=== PATIENT | female | born 1945 | race Caucasian/White ===

== ENCOUNTER 2017-01-16 02:41 | Emergency (ER) | payer MEDICARE ==
[~2017-01-16] VITALS: Ht 172.7 cm; Wt 79.5 kg
[~2017-01-16 02:41] MED LIST: AMIT10TA6 PO; ASPI-973 PO; CALC-78 PO; CELE200C PO; DICY10CA13 PO; FLUT16SP NS; HSC.125T PO; LISI40TA PO; METF500T4 PO; MULT-1018 PO; OMEP20TA24 PO; P EP PO; PRAV40TA PO; TRAM50TA2 PO
[2017-01-16 03:17] VITALS: BP 148/95; PULSE 103; RESP 18; O2SAT 97
[2017-01-16 03:32] LABS: BASOPHILS % (AUTO) 0.4 % (0-3); EOSINOPHILS % (AUTO) 5.4 % (0-5); MONOCYTES % (AUTO) 10.9 % (4-12); Mean Corpuscular Hemoglobin 29.3 pg (27.0-35.0); Mean Corpuscular Volume 86.4 fL (81-100); NEUTROPHILS % (AUTO) 56.2 % (40-74); Platelet Count 374 bil/L (150-400)
[2017-01-16 03:57] LABS: Magnesium 1.6 mg/dL (1.6-2.6)
--- NOTE | 2017-01-16 04:08 | ED.REPORT ---
HPI-Abd Pain F 40 and Over Date of Service Jan 16, 2017 ED Provider: Titus Lopes MD Pt is a 71 year old female with a hx of DM, diverticulitis, arthritis, and HTN presenting to the ED complaining of lower abdominal pain onset at 0000 this morning. Associated symptoms include nausea. Denies dysuria, fever, chills, SOB , wheezing, or vomiting. Denies any recent UTI. Nursing Notes Stated Complaint: ABDOMINAL PAIN Chief Complaint: Female Abdominal Pain Nursing Notes Reviewed: Yes Allergies: Coded Allergies: Penicillins (Verified Allergy, Severe, 01/16/17) pentazocine (Verified Allergy, Severe, 01/16/17) ampicillin (Verified Allergy, Unknown, Hives, 01/16/17) Uncoded Allergies: Penicillin (Allergy, Severe, 04/02/04) Pentazocine (Allergy, Severe, 04/02/04) Scheduled Amitriptyline (Amitriptyline) 10 Mg Tablet 10 MG PO HS Aspirin (Aspirin) 81 Mg Tablet 81 MG PO DAILY Calcium Carbonate/Vitamin D3 (Calcium 500 + Vit D Caplet) 1 Each Tablet 1 EACH PO DAILY Celecoxib (Celebrex) 200 Mg Capsule 200 MG PO BID Fexofenadine/Pseudoephedrine ER (Fexofenadine/Pseudoephedrine ER) 1 Each Tablet 1 TABLET PO BID Fluticasone Propionate (Fluticasone Propionate Nasal) 16 Gm [place].susp 1 SPRAY NS HS Hyoscyamine Sulfate (Levsin) 0.125 Mg Tab 0.125 MG PO DAILY Lisinopril (Lisinopril) 40 Mg Tablet 40 MG PO DAILY Metformin (Metformin) 500 Mg Tablet 500 MG PO BID Multivitamin (Multi Vitamin Daily) 1 Each Tablet 1 EACH PO DAILY Omeprazole Magnesium (Prilosec Otc) 20 Mg Tablet.dr 20 MG PO BID Pravastatin (Pravastatin) 40 Mg Tablet 40 MG PO DAILY Scheduled PRN Dicyclomine (Dicyclomine) 10 Mg Capsule 10 MG PO QID PRN PRN For GI Cramps Tramadol (Tramadol) 50 Mg Tablet 50 MG PO Q4H PRN PRN For Pain General Time Seen by MD: 04:06 Chief Complaint Abdominal pain Hx Obtained From: Patient Arrived By: Walk-in Sudden in Onset?: Yes Onset Occurred: 1 - 4 hours ago Symptom Duration: Since onset Progression since Onset: Constant Location: : Abdomen lower Quality: Painful Severity: Current: Moderate Severity: Maximum: Severe Recent Healthcare: No recent doctor visit, No recent hospitalization Similar Sx Previous: No Past Medical History Past Medical History DM, diverticulitis, arthritis, HTN Past Surgical History denies Smoking History Never Smoker Social History Alcohol Use: Denies alcohol use Drug Use: Denies drug use Other Social History: Ambulatory Status Independent Review of Systems Constitutional: Denies: Chills, Fever Respiratory: Denies: Shortness of breath, Wheezing GI: Reports: Abdominal pain, Nausea, Denies: Vomiting Complete sys rev & neg: except as marked. Physical Exam Vital Signs Vital Signs (First) Date Time Temp Pulse Resp B/P Pulse Ox O2 Delivery O2 Flow Rate FiO2 01/16/17 03:17 36.3 103 18 148/95 97 Room Air Initial VS: Reviewed, Vital signs abnormal Head / Eyes: Atraumatic, Normocephalic, PERRL ENT: Mucous membranes moist, Conjunctiva normal, No scleral icterus Neck: Supple, Non-tender, Full range of motion Extremities: Vascular intact, Neuro intact, No swelling, No tenderness Skin: Warm, Dry, No cyanosis Neurologic: Alert, Oriented, Nonfocal Psychiatric: Mood/affect normal, Behavior normal, Normal thought content General/Constitutional: Awake, Alert, No acute distress, Well appearing Respiratory / Chest: Breath sounds NL, Breath sounds = bilat, No respiratory distress, No rales, No rhonchi, No wheezing, No stridor Cardiovascular: Heart rate NL, Regular rhythm, Heart sounds NL, Peripheral circulation NL Abdomen: Atraumatic, Soft Suprapubic tenderness Back: Atraumatic, Inspection NL, Full range of motion, No CVA tenderness Interpretation & Diagnostics Lab Results Interpretation Result Diagram: 01/16/17 0326 01/16/17 0326 Test 01/16/17 03:25 01/16/17 03:26 01/16/17 04:27 Hold Lance Top Tube Received (Received) White Blood Count 9.2th/mm3 (3.8-10.1) Red Blood Count 4.50mil/mm3 (3.90-5.20) Hemoglobin 13.2g/dL (12.0-15.6) Hematocrit 38.9% (35.0-46.0) Mean Corpuscular Volume 86.4fL (81-100) Mean Corpuscular Hemoglobin 29.3pg (27.0-35.0) Mean Corpuscular Hemoglobin Concent 33.9% (32.0-37.0) Red Cell Distribution Width 13.0% (12.3-15.4) Platelet Count 374bil/L (150-400) Neutrophils (%) (Auto) 56.2% (40-74) Lymphocytes (%) (Auto) 26.9% (14-46) Monocytes (%) (Auto) 10.9% (4-12) Eosinophils (%) (Auto) 5.4% (0-5) Basophils (%) (Auto) 0.4% (0-3) Sodium Level 139mEq/L (134-144) Potassium Level 4.6mEq/L (3.5-5.2) Chloride Level 103mEq/L (97-108) Carbon Dioxide Level 21mmol/L (18-29) Blood Urea Nitrogen 27mg/dL (8-27) Creatinine 0.65mg/dL (0.57-1.00) Estimat Glomerular Filtration Rate 128mL/min (>59) Glucose Level 107mg/dL (60-99) Calcium Level 10.4mg/dL (8.5-10.1) Magnesium Level 1.6mg/dL (1.6-2.6) Total Bilirubin 0.3mg/dL (0.0-1.2) Aspartate Amino Transf (AST/SGOT) 13U/L (0-50) Alanine Aminotransferase (ALT/SGPT) 12U/L (0-32) Alkaline Phosphatase 59U/L (25-165) Total Protein 7.8g/dL (6.4-8.4) Albumin 4.2g/dL (3.4-5.0) Lipase 59U/L (13-60) Urine Color Yellow (YELLOW) Urine Appearance Slightly cloudy Urine pH 5.5 (5.0-8.0) Urine Specific [place] 1.015 (1.003-1.035) Urine Protein Negativemg/dL (NEG,TRACE) Urine Glucose (UA) Negativemg/dL (NEGATIVE) Urine Ketones Negativemg/dL (NEGATIVE) Urine Occult Blood Trace (NEGATIVE) Urine Nitrite Negative (NEGATIVE) Urine Bilirubin Negative (NEGATIVE) Urine Urobilinogen Normalmg/dL (NORMAL) Urine Leukocyte Esterase Moderate (NEGATIVE) Urine RBC 0-2/hpf (0-2) Urine WBC 11-50/hpf (0-5) Urine Epithelial Cells Moderate/hpf (NONE-MOD) Urine Crystals None seen (NONE SEEN) Urine Bacteria Moderate/hpf (NONE-FEW) Urine Hyaline Casts None/lpf (NONE) Urine Granular Casts None seen (NONE SEEN) Urine Waxy Casts None seen (NONE SEEN) Urine Red Blood Cell Casts None seen (NONE SEEN) Urine White Blood Cell Casts None seen (NONE SEEN) Urine Mucus None seen (None Seen) Urine Trichomonas None seen (NONE SEEN) Urine Yeast None (NONE SEEN) Urinalysis Comment None Urine Culture Reflexed Indicated Lab Results Interpretation: Greater than 50 wbc per hpf, culture pending Re-Eval/Medical Decision Med Decision/Clinical Course 71-year-old female who presents with suprapubic discomfort. She has a history of diverticulitis and is concerned that that may be the cause. However the pain is quite localized to the suprapubic area and she has greater than 50 wbc per hpf. There is no white count elevation in her blood. She will be treated with cephalexin (she has been intolerant of Cipro, Flagyl, and clindamycin in the past). Re-Evaluation/Progress : Time of Eval: 05:19 Patient Status: Condition improved Re-Evaluation/Progress Note: Discussed plan for depart. Pt understands and agrees with plan. Counseled Regarding: Diagnosis, Lab results, Need for follow-up, When/why to return to ED Discharge & Departure Primary Impression: Urinary tract infection Urinary tract infection type: acute cystitis Hematuria presence: without hematuria Qualified Code: N30.00 - Acute cystitis without hematuria Disposition: Home Discharge Condition All VS Reviewed: Yes Condition: Improved Patient Instructions: Urinary Tract Infection in Women (ED) Additional Instructions: You have a urinary tract infection. Culture is pending. Cephalexin 500 mg by mouth 3 times a day #30. Drink plenty of fluids and cranberry juice. Follow- up with your regular doctor as needed if symptoms do not improve. Referrals: Jacques Alvarado MD (PCP) Scribe Attestation Portions of this note were transcribed by Cielo Alvarenga. I, Dr. Lopes personally performed the history, physical exam and medical decision-making; I reviewed and confirmed the accuracy of the information in the transcribed note. Signed by: Fouzia Villa, 01/16/2017. copies to: Jacques Alvarado MD, Titus Ortega MD Jan 16, 2017 04:08 CIELO ALVARENGA Jan 16, 2017 05:13
[2017-01-16 04:48] LABS: APPEARANCE,URINE SLIGHTLY CLOUDY (CLEAR,HAZY); COLOR,URINE YELLOW (YELLOW); OCCULT BLOOD,URINE TRACE (NEGATIVE); PH,URINE 5.5 (5.0-8.0); UROBILINOGEN,URINE NORMAL (NORMAL)
[2017-01-16 05:46] VITALS: BP 120/82; PULSE 98; RESP 16; O2SAT 96
[2017-01-16] MEDS ORDERED: _Cephalexin 500 mg Capsule PO SCH (08:30)
== END 2017-01-16 05:47 | disposition home or self-care (01) ==
LOC: SED 02:41
DX: N30.00 Acute cystitis without hematuria (principal); E11.9 Type 2 diabetes mellitus without complications; I10 Essential (primary) hypertension; Z90.49 Acquired absence of other specified parts of digestive tract; Z87.19 Personal history of other diseases of the digestive system; Z87.39 Personal history of other diseases of the musculoskeletal system and connective tissue; Z79.82 Long term (current) use of aspirin; Z79.84 Long term (current) use of oral hypoglycemic drugs; Z88.0 Allergy status to penicillin